=== PATIENT | male | born 1970 | race Caucasian/White ===

== ENCOUNTER 2024-10-28 08:29 | Emergency (ER) | payer BC ==
[~2024-10-28] VITALS: Ht 177.8 cm; Wt 97.0 kg
[2024-10-28 08:37] VITALS: BP 134/111
[2024-10-28] MEDS ORDERED: MORPHINE SULFATE 4 MG/ML VIAL IV ONE (08:55)
[2024-10-28] MEDS ORDERED: Pantoprazole Sodium 40 MG VIAL (Protonix) IV ONE (08:55)
[2024-10-28] MEDS ORDERED: ONDANSETRON HCl 4 MG/2 ML SDV IV ONE (08:55)
[2024-10-28 08:56] VITALS: BP 121/84
[2024-10-28 08:56] LABS: BASO% 0.2 % (0-3); EOS% 0.5 % (0-8); HEMATOCRIT 44.1 % (39.0-50.0); HEMOGLOBIN 15.1 g/dl (14.0-18.0); IMMATURE GRANULOCYTES 0.2 % (0.0-5.0); LYMPH% 11.4 % (15-41); MEAN CELL VOLUME 88.9 fL CALC (80.0-100.0); MEAN CORPUSCULAR HGB 30.4 pG CALC (26.0-32.0); MEAN CORPUSCULAR HGB CONC 34.2 g/dL CAL (32.0-36.0); MONO% 5.9 % (2-13); NEUT# 10.71 thou/uL (1.82-7.42); NEUT% 81.8 % (42-76); RED BLOOD COUNT 4.96 mill/uL (4.70-6.10); RED CELL DISTRI WIDTH 12.3 % (11.5-15.5)
[2024-10-28 09:01] VITALS: BP 121/68
[2024-10-28 09:04] LABS: ESTIMATED GFR 61 ML/MIN (>=90 (CALC))
[2024-10-28 09:13] LABS: ALBUMIN 4.3 g/dL (3.2-5.0); CREATININE 1.2 mg/dL (0.7-1.3); POTASSIUM 4.2 mmol/l (3.5-5.1); TOTAL PROTEIN 7.3 g/dL (6.3-8.2)
[2024-10-28] MEDS ORDERED: PIPERACILLIN Sodium-Tazobactam 3.375 GM in SODIUM CHLORIDE 0.9% 100 ML IV ONE (10:45)
[2024-10-28] MEDS ORDERED: SODIUM CHLORIDE 0.9% 1,000 ML IV ONE (10:50)
[2024-10-28 11:22] LABS: URINE BILIRUBIN - DIPSTICK Negative (NEGATIVE); URINE BLOOD DIPSTICK Trace-lysed (NEGATIVE); URINE GLUCOSE - DIPSTICK Negative (NEGATIVE); URINE KETONE Negative (NEGATIVE); URINE LEUK ESTERASE Negative (NEGATIVE); URINE NITRITE - DIPSTICK Negative (Negative); URINE PH 5.5 (4.5-8.0); URINE PROTEIN - DIPSTICK Negative (NEG-TRACE); URINE UROBILINOGEN - DIPSTICK 0.2 E.U./dL (0.2)
[2024-10-28 11:29] LABS: URINE COLOR Dark yellow
[2024-10-28] MEDS ORDERED: HYDROmorphone HCL 2 MG/AMP IV ONE (12:15)
[2024-10-28 13:00] VITALS: BP 121/84
== END 2024-10-28 13:00 | disposition short-term general hospital (02) | DRG 446 ==
LOC: ED 08:29
PROVIDERS: Family Medicine
DX: K81.0 Acute cholecystitis (principal); K82.A1 Gangrene of gallbladder in cholecystitis; F17.290 Nicotine dependence, other tobacco product, uncomplicated
CPT/HCPCS: J1171; J2405; J2470; J2543; Q9967